=== PATIENT | male | born 1980 | race African-American/Black ===

== ENCOUNTER → 2018-04-29 | Outpatient (CLI) | payer OTHER | END | disposition home or self-care (01) | LOC: PCVCIMAG 16:25 | DX: I34.0 Nonrheumatic mitral (valve) insufficiency (principal); I42.9 Cardiomyopathy, unspecified; I10 Essential (primary) hypertension; E78.5 Hyperlipidemia, unspecified | CPT/HCPCS: 93308 ==

== ENCOUNTER → 2019-05-25 | Outpatient (CLI) | payer OTHER ==
--- NOTE | 2019-05-25 16:34 | PCVCIMAG ---
APPROVED REPORT Study performed: 05/25/2019 16:13:08 EXAM: Comprehensive 2D, Doppler, and color-flow Echocardiogram Patient Location: Echo lab Status: routine BSA: 1.91 HR: 64 bpmBP: 138/90 mmHg Rhythm: NSR Other Information Study Quality: Good Risk Factors: Cardiac Risk Factors: HTN, Hyperlipidemia Indications Cardiomyopathy Left Ventricle Left ventricular ejection fraction is mild to moderately decreased. LVEF is 40-45%. Aortic Valve Aortic valve is grossly normal in structure. Mitral Valve Mitral valve is normal in structure. Trace mitral regurgitation. Pericardium No pericardial effusion. <Conclusion> Left ventricular ejection fraction is mild to moderately decreased. LVEF is 40-45%. Mitral valve is normal in structure. Trace mitral regurgitation. Aortic valve is grossly normal in structure. No pericardial effusion.
== END | disposition home or self-care (01) ==
LOC: PCVCIMAG 16:05
PROVIDERS: ATTEND Internal Medicine
DX: I42.9 Cardiomyopathy, unspecified (principal); R06.00 Dyspnea, unspecified
CPT/HCPCS: 93308